=== PATIENT | male | born 1950 | race Caucasian/White ===

== ENCOUNTER 2021-01-20 10:29 | Day surgery (SDC) | payer MEDICARE, MEDICAID ==
[~2021-01-20] VITALS: Ht 170.2 cm; Wt 81.8 kg
[2021-01-20 10:45] VITALS: BP 147/110
[2021-01-20] MEDS ORDERED: LOSA25TA96 PO (11:07)
[2021-01-20] MEDS ORDERED: MIDAZolam 1 MG/ML 5ML VIAL ONE (11:26)
[2021-01-20] MEDS ORDERED: fentaNYL/PF 50MCG/1 ML 2ML syringe ONE (11:26)
[2021-01-20 12:43] VITALS: BP 147/96
[2021-01-20 12:53] VITALS: BP 122/79
[2021-01-20 13:03] VITALS: BP 137/76
[2021-01-20 13:13] VITALS: BP 148/84
== END 2021-01-20 13:45 | disposition home or self-care (01) ==
LOC: GI LAB 10:29
PROVIDERS: ATTEND Internal Medicine Gastroenterology
DX: Z12.11 Encounter for screening for malignant neoplasm of colon (principal); D12.2 Benign neoplasm of ascending colon; K57.30 Diverticulosis of large intestine without perforation or abscess without bleeding; K64.8 Other hemorrhoids; I10 Essential (primary) hypertension; Z79.899 Other long term (current) drug therapy
CPT/HCPCS: 45380; 45385; 99153; C1773; G0500; J2250; J3010; J7040; Z7512; 88305; 99152